=== PATIENT | female | born 1985 | race Caucasian/White ===

== ENCOUNTER → 2019-03-28 | Outpatient (CLI) | payer BC ==
[~2019-03-28] MED LIST: ACET500 PO; ALBU.083IS IH; ALBU90I INH; ALBU90OI; ALBU90OI INH; ALBU90OI6; ALBU90OI61 INH; BENZ100A PO; Bupropion HCl200 MG PO; CEPH500 PO; CLIN150 PO; CLON.5; CODGUAEL PO; CODGUAPSEE PO; CYCL10 PO; DOXY100 PO; FLUSAL2505; FLUT44OIA; FLUT44OIA IH; GUAI600T33 PO; HYDACE5 PO; HYDGUAL120 PO; IBUP800; KEFLEX; LEVSOD50 PO; LEXAPRO; MONT10T; NAPR500 PO; NITR100CA PO; OXYACE5T; OXYACE5T PO; PENVK500 PO; PHENA100 PO; PRED20 PO; Percocet 5-3251 EACH PO; Ventolin5 MG/1 ML IH; Zofran8 MG PO; [UNRECOGNIZED DRUG - OTHER]
== END | disposition home or self-care (01) ==
LOC: LAB SHORT 19:00 → LAB 19:00
DX: R50.9 Fever, unspecified (principal)
CPT/HCPCS: 87086

== ENCOUNTER → 2021-08-27 | Outpatient (CLI) | payer BC ==
[~2021-08-27] MED LIST changes: +DOCU100 PO; +Esgic Tablet1 EACH PO; +IBUP800 PO; -LEVSOD50 PO; +LEVSOD75 PO; +Milk Of Ma400 MG/5 M PO; +PROM25 PO; +SENN187 PO; +SIME80CH PO; +SUMA25 PO
[2021-08-27 13:43] LABS: Alanine Aminotransfer (ALT/SGP 31 U/L (12-78); Albumin, Blood 3.7 g/dL (3.4-5.0); Albumin/Globulin Ratio 0.8 (0.8-1.8); Alk Phos 77 U/L (50-136); Anion Gap 7 mmol/L (6-16); Aspartate Aminotrans (AST/SGOT 13 U/L (12-37); Bilirubin, Total 0.6 mg/dL (0.1-1.0); Blood Urea Nitrogen 12 mg/dL (8-24); Bun/Creatinine Ratio 15.7 (12.0-20.0); CO2, Blood 23 mmol/L (21-32); Calcium, Blood 9.5 mg/dL (8.5-10.1); Chloride, Blood 109 mmol/L (98-108); Creatinine, Blood 0.77 mg/dL (0.40-1.00); Globulin, Blood 4.4 g/dL (2.2-4.0); Glomerular Filtration Rate >60 (60-); Glucose, Blood 87 mg/dL (70-99); Potassium, Blood 3.6 mmol/L (3.5-5.5); Sodium, Blood 139 mmol/L (136-145); Thyroid Stimulating Hormone 0.008 uIU/mL (0.360-4.800); Total Protein, Blood 8.1 g/dL (6.4-8.2)
== END | disposition home or self-care (01) ==
LOC: LAB SHORT 12:05
PROVIDERS: Nurse Practitioner
DX: E03.9 Hypothyroidism, unspecified (principal)
CPT/HCPCS: 80053; 84443

== ENCOUNTER 2022-02-01 02:59 | Emergency (ER) | payer BC ==
[~2022-02-01] VITALS: Ht 170.2 cm; Wt 99.8 kg
[~2022-02-01 02:59] MED LIST changes: +CLIN1TS; +ESCI10 PO; +RIZATRIPTAN10 MG SL; +TOPI100 PO
[2022-02-01 04:10] LABS: BASOPHILS ABSOLUTE AUTO 0.05 K/mm3 (0.00-0.23); BASOPHILS PERCENT AUTO 0 % (0-2); EOSINOPHILS ABSOLUTE AUTO 0.08 K/mm3 (0.00-0.68); EOSINOPHILS PERCENT AUTO 1 % (0-6); Hematocrit 39.6 % (33.0-51.0); Hemoglobin 13.1 g/dL (11.5-16.0); IMMATURE GRAN ABSOLUTE AUTO 0.06 K/mm3 (0.00-0.10); IMMATURE GRAN PERCENT AUTO 1 % (0-1); LYMPHOCYTES ABSOLUTE AUTO 1.27 K/mm3 (0.84-5.20); LYMPHOCYTES PERCENT AUTO 10 % (21-46); MONOCYTES PERCENT AUTO 6 % (4-13); Mean Corpuscular HGB 28.4 pg (26.0-34.0); Mean Corpuscular HGB Conc 33.1 g/dL (31.5-36.5); Mean Corpuscular Volume 86 fL (80-100); Mean Platelet Volume 11.2 fL (9.1-12.4); NEUTROPHILS ABSOLUTE AUTO 10.49 K/mm3 (1.96-9.15); NEUTROPHILS PERCENT AUTO 83 % (41-73); Platelet Count 212 K/mm3 (150-400); RDW Coefficient Variation 13.3 % (11.7-14.2); RDW Standard Deviation 41.2 fL (35.1-46.3); Red Blood Cell Count 4.61 M/mm3 (3.80-5.20); White Blood Cell Count 12.65 K/mm3 (4.00-11.30)
[2022-02-01 04:11] LABS: Source, Urine Clean Catch
[2022-02-01 04:34] LABS: Bilirubin, Urine Neg (Neg); Blood, Urine 1+ (Neg); Glucose Qualitative, Urine Neg (Neg); Ketones, Urine Neg (Neg); Leukocyte Esterase, Urine Neg (Neg); Nitrite, Urine Neg (Neg); Protein, Urine 1+ (Neg); Specific Gravity, Urine 1.015 (1.003-1.022); Urobilinogen, Urine 1+ (Normal)
[2022-02-01 04:35] LABS: Albumin, Blood 3.5 g/dL (3.4-5.0); Albumin/Globulin Ratio 0.8 (0.8-1.8); Bun/Creatinine Ratio 14.2 (12.0-20.0); Calcium, Blood 9.1 mg/dL (8.5-10.1); Creatinine, Blood 1.27 mg/dL (0.40-1.00); Globulin, Blood 4.4 g/dL (2.2-4.0); Potassium, Blood 3.8 mmol/L (3.5-5.5); Total Protein, Blood 7.9 g/dL (6.4-8.2)
[2022-02-01 04:45] LABS: Appearance, Urine Cloudy (Clear); Color, Urine Yellow (P-Yellow)
[2022-02-01 04:47] LABS: Bacteria Few /hpf; Red Blood Cells, Urine 0-2 /hpf (0-2); Squamous Epithelial Cells Few /hpf (Few); White Blood Cells, Urine 0-2 /hpf (0-5)
[2022-02-01 04:48] LABS: Amorphous Mod (0-Heavy)
[2022-02-01] MEDS ORDERED: ONDA4ODT MM (05:18)
[2022-02-01] MEDS ORDERED: TAMS.4ER PO (05:18)
== END 2022-02-01 05:50 | disposition home or self-care (01) ==
LOC: ER 02:59
PROVIDERS: Student in an Organized Health Care Education/Training Program
DX: N13.2 Hydronephrosis with renal and ureteral calculous obstruction (principal); E03.9 Hypothyroidism, unspecified; Z88.0 Allergy status to penicillin; Z88.1 Allergy status to other antibiotic agents; Z88.2 Allergy status to sulfonamides; Z88.8 Allergy status to other drugs, medicaments and biological substances; Z87.891 Personal history of nicotine dependence; Z79.899 Other long term (current) drug therapy
CPT/HCPCS: 36415; 74176; 80053; 81001; 85025; A9270; J1885; J2405; J7030

== ENCOUNTER → 2023-03-29 | Outpatient (CLI) | payer BC ==
[~2023-03-29] MED LIST changes: +ONDA4ODT MM; +TAMS.4ER PO
[2023-03-30 09:47] LABS: BASOPHILS ABSOLUTE AUTO 0.06 K/mm3 (0.00-0.23); BASOPHILS PERCENT AUTO 0 % (0-2); EOSINOPHILS ABSOLUTE AUTO 0.35 K/mm3 (0.00-0.68); EOSINOPHILS PERCENT AUTO 2 % (0-6); Hematocrit 43.6 % (33.0-51.0); Hemoglobin 14.3 g/dL (11.5-16.0); IMMATURE GRAN ABSOLUTE AUTO 0.21 K/mm3 (0.00-0.10); IMMATURE GRAN PERCENT AUTO 1 % (0-1); LYMPHOCYTES ABSOLUTE AUTO 3.73 K/mm3 (0.84-5.20); LYMPHOCYTES PERCENT AUTO 23 % (21-46); MONOCYTES ABSOLUTE AUTO 0.97 K/mm3 (0.16-1.47); MONOCYTES PERCENT AUTO 6 % (4-13); Mean Corpuscular HGB 28.3 pg (26.0-34.0); Mean Corpuscular HGB Conc 32.8 g/dL (31.5-36.5); Mean Corpuscular Volume 86 fL (80-100); NEUTROPHILS ABSOLUTE AUTO 10.82 K/mm3 (1.96-9.15); NEUTROPHILS PERCENT AUTO 67 % (41-73); Platelet Count 234 K/mm3 (150-400); RDW Coefficient Variation 13.2 % (11.7-14.2); RDW Standard Deviation 41.1 fL (35.1-46.3); Red Blood Cell Count 5.06 M/mm3 (3.80-5.20); White Blood Cell Count 16.14 K/mm3 (4.00-11.30)
[2023-03-30 09:59] LABS: Alanine Aminotransfer (ALT/SGP 32 U/L (12-78); Albumin, Blood 3.4 g/dL (3.4-5.0); Albumin/Globulin Ratio 0.8 (0.8-1.8); Alk Phos 54 U/L (50-136); Anion Gap 4 mmol/L (6-16); Aspartate Aminotrans (AST/SGOT 22 U/L (12-37); Bilirubin, Total 0.4 mg/dL (0.1-1.0); Blood Urea Nitrogen 11 mg/dL (8-24); Bun/Creatinine Ratio 12.2 (12.0-20.0); CHOL/HDL RATIO 3.7; CO2, Blood 25 mmol/L (21-32); Calcium, Blood 8.6 mg/dL (8.5-10.1); Chloride, Blood 110 mmol/L (98-108); Cholesterol 195 mg/dL (50-200); Creatinine, Blood 0.91 mg/dL (0.40-1.00); Free Thyroxine 0.96 ng/dL (0.70-1.60); Globulin, Blood 4.3 g/dL (2.2-4.0); Glomerular Filtration Rate 83 (60-); Glucose, Blood 94 mg/dL (70-99); HDL Cholesterol 53 mg/dL (>39); LDL/HDL RATIO 2.4; Low Density Lipoprotein Chol 125 mg/dL (0-110); Potassium, Blood 4.4 mmol/L (3.5-5.5); Sodium, Blood 139 mmol/L (136-145); Total Protein, Blood 7.7 g/dL (6.4-8.2); Triglycerides 85 mg/dL (30-140); Very Low Density Lipoprot Chol 17 mg/dL (6-28)
== END ==
LOC: LAB 15:45 → LAB SHORT 15:45
PROVIDERS: Family Medicine
DX: Z13.228 Encounter for screening for other metabolic disorders (principal); Z13.29 Encounter for screening for other suspected endocrine disorder; E03.9 Hypothyroidism, unspecified
CPT/HCPCS: 80053; 80061; 84439; 84443; 85025

== ENCOUNTER 2023-05-24 07:53 | Day surgery (SDC) | payer BC ==
[~2023-05-24] VITALS: Ht 170.2 cm; Wt 108.8 kg
[2023-05-24] MEDS ORDERED: Amitriptyline H10 MG PO (08:33)
[2023-05-24] MEDS ORDERED: Cymbalta20 MG PO (08:34)
[2023-05-24] MEDS ORDERED: NARA2.5 (08:34)
[2023-05-24] MEDS ORDERED: DICLOFENAC SOD100 GM TP (08:34)
[2023-05-24] MEDS ORDERED: MINIPRESS1 MG PO (08:35)
--- NOTE | 2023-05-24 08:41 | NUR ---
05/24/23 0841 Naresh Husain CALL LIGHT WITHIN REACH.
[2023-05-24 11:19] VITALS: BP 113/72
--- NOTE | 2023-05-24 12:25 | NUR ---
05/24/23 1225 Inderjit Lerma IV REMOVED INTACT. SITE WNL.
== END 2023-05-24 12:18 | disposition home or self-care (01) ==
LOC: ORSCSDS 07:53
PROVIDERS: Orthopaedic Surgery
PROC: 0MNP4ZZ Release Left Knee Bursa and Ligament, Percutaneous Endoscopic Approach (ICD-10-PCS; principal; 2023-05-24 09:45)
DX: M22.2X2 Patellofemoral disorders, left knee (principal); M22.42 Chondromalacia patellae, left knee; M67.52 Plica syndrome, left knee; J45.909 Unspecified asthma, uncomplicated; E03.9 Hypothyroidism, unspecified; Z87.891 Personal history of nicotine dependence; E66.9 Obesity, unspecified; Z68.37 Body mass index [BMI] 37.0-37.9, adult; Z79.899 Other long term (current) drug therapy
CPT/HCPCS: J0171; J1100; J1885; J2250; J2371; J2405; J2704; J3010; J7120

== ENCOUNTER 2024-05-23 10:33 | Day surgery (SDC) | payer BC ==
[~2024-05-23] VITALS: Ht 170.2 cm; Wt 116.5 kg
[~2024-05-23 10:33] MED LIST changes: +Amitriptyline H10 MG PO; +Cymbalta20 MG PO; +DICLOFENAC SOD100 GM TP; +MINIPRESS1 MG PO; +NARA2.5
[2024-05-23] MEDS ORDERED: PEPCID40 MG PO (11:06)
[2024-05-23] MEDS ORDERED: AIRSUPRA 90-810.7 GM IH (11:08)
[2024-05-23] MEDS ORDERED: PROZAC2010 PO (11:10)
[2024-05-23] MEDS ORDERED: Lactated Ringer's 1,000 ML IV ONE ×2 (11:18→11:58)
[2024-05-23] MEDS ORDERED: Midazolam HCl 1MG / ML 2ML Vial ONE (11:57)
[2024-05-23] MEDS ORDERED: Lidocaine 2%-Epineph 1:100000 20 ML MDV INJ ONE (12:24)
--- NOTE | 2024-05-23 12:24 | NUR ---
05/23/[address] IN ROOM, SONOSITE AT BEDSIDE. 10ML INJECTION OF LICOCAINE 2% WITH 1:100,000 OF EPINEPHRINE. PT TOLERATED WELL. PULSE-OX IN PLACE FOR O2 MONTORING.
[2024-05-23 12:50] VITALS: BP 114/72
== END 2024-05-23 13:25 | disposition home or self-care (01) ==
LOC: ORSCSDS 10:33
PROVIDERS: Orthopaedic Surgery
PROC: 01N54ZZ Release Median Nerve, Percutaneous Endoscopic Approach (ICD-10-PCS; principal; 2024-05-23 12:40)
DX: G56.03 Carpal tunnel syndrome, bilateral upper limbs (principal); J45.909 Unspecified asthma, uncomplicated; F43.10 Post-traumatic stress disorder, unspecified; E03.9 Hypothyroidism, unspecified; E66.9 Obesity, unspecified; Z68.41 Body mass index [BMI] 40.0-44.9, adult; Z87.891 Personal history of nicotine dependence; Z79.899 Other long term (current) drug therapy
CPT/HCPCS: J2250; J7120

== ENCOUNTER → 2025-04-10 | Outpatient (CLI) | payer BC, OTHER ==
[~2025-04-10] MED LIST changes: +AIRSUPRA 90-810.7 GM IH; +PEPCID40 MG PO; +PROZAC2010 PO
== END ==
LOC: LAB 18:34 → LAB SHORT 18:34
DX: R30.0 Dysuria (principal)
CPT/HCPCS: 87086